=== PATIENT | male | born 1965 | race Caucasian/White ===

== ENCOUNTER → 2021-01-21 | Emergency (ER) | payer BC, OTHER ==
[~2021-01-21] VITALS: Ht 182.9 cm; Wt 86.2 kg
[~2021-01-21] MED LIST: INSLISPI SC; LEVEMIR SC
[2021-01-21 14:24] VITALS: BP 136/78
== END | disposition home or self-care (01) ==
LOC: ER 12:02
DX: S29.011A Strain of muscle and tendon of front wall of thorax, initial encounter (principal); E11.9 Type 2 diabetes mellitus without complications; W19.XXXA Unspecified fall, initial encounter; Y93.89 Activity, other specified; Y92.89 Other specified places as the place of occurrence of the external cause; Y99.8 Other external cause status
CPT/HCPCS: 71101